=== PATIENT | female | born 1995 | race Caucasian/White ===

== ENCOUNTER 2017-09-09 14:49 | Emergency (ER) | END 2017-09-09 18:40 | disposition home or self-care (01) ==

== ENCOUNTER 2018-09-27 19:33 | Emergency (ER) | payer MEDICAID ==
[~2018-09-27] VITALS: Wt 65.0 kg
[~2018-09-27 19:33] MED LIST: LEVE750T70 PO; LORA1TAB PO
[2018-09-27] MEDS ORDERED: SOD CHLORIDE 0.9% 500 ML IV STA (20:44)
[2018-09-27] MEDS ORDERED: LEVETIRACETAM 500 MG (PMX) 100 ML IVPB ONE (21:00)
[2018-09-27 21:21] VITALS: BP 120/82; PULSE 100; RESP 19
--- NOTE | 2018-09-27 22:32 | ERD ---
ER Documentation Chief Complaint Chief Complaint bib ra cc: seizure x 5 min, -postictal, last seizure sat, taking keppra, HPI 23-year-old woman suffered a tonic-clonic seizure witnessed by her friend about an hour prior to arrival. Patient does have a history of seizures and uses 1500 mg levetiracetam twice daily, but her neurologist recently added zonisamide to better control her seizures because she does have infrequently despite Keppra therapy. She did fill her prescription but has not used zonisamide today because it is new. Patient had no loss of bowel or bladder control and a very short postictal episode, she feels fine at this time and is asymptomatic currently. ROS All systems reviewed and are negative except as per history of present illness. Medications Home Meds Active Scripts Lorazepam* (Lorazepam*) 1 Mg Tablet, 1 MG PO Q8, #10 TAB Prov:LEKKOS,APOSTOLOS A. DO 09/09/17 Levetiracetam* (Keppra*) 750 Mg Tablet, 750 MG PO BID, #60 TAB Prov:LEKKOS,APOSTOLOS A. DO 09/09/17 Allergies Allergies: Coded Allergies: Penicillins (Verified Allergy, Unknown, 09/09/17) PMhx/Soc Seizure disorder Medical and Surgical Hx: pt denies Surgical Hx Hx Neurological Disorder: Yes (seizure disorder ) Hx Alcohol Use: No Hx Substance Use: No Hx Tobacco Use: No Smoking Status: Never smoker FmHx Family History: No diabetes Physical Exam Vitals Vital Signs Date Temp Pulse Resp B/P (MAP) Pulse Ox O2 O2 Flow FiO2 Time Delivery Rate 09/27/18 98.1 100 19 120/82 100 Room Air 21:21 (95) 09/27/18 98.1 101 19 124/87 100 19:41 (99) 09/27/18 98.1 117 19 130/81 100 Room Air 19:41 (97) Physical Exam GENERAL: Well-developed, well-nourished, well-hydrated, in no apparent distress, looks nontoxic in appearance HEENT: Moist mucous membranes, pink conjunctiva, no cervical spine tenderness or step-off deformities, no goiter, no jaundice or icterus, extraocular movements intact without pain. No submandibular induration, and no pharyngeal erythema NEURO: Alert and oriented 3, cranial nerves II through XII intact bilaterally, pupils equal round reactive to light, no focal deficits or facial asymmetry, sensation intact distally Strength 5/5 in upper and lower extremities bilaterally CARDIAC: Regular rate and rhythm, no murmurs rubs or gallops LUNGS: Clear bilaterally no wheezing crackles or stridor ABDOMEN: Soft nontender, no guarding, no rigidity, no rebound, no psoas sign no obturator sign. Normoactive bowel sounds SKIN: Warm and dry to touch, no abrasions, contusions, or hematomas, no lac erations, no ecchymosis, no target lesions, and without ulcers EXTREMITIES: No clubbing cyanosis or edema, calves are bilaterally symmetrical, no Homans sign, no popliteal cord sign. Distal pulses equal and bilateral PSYCH: Normal affect without agitation or irritability Results 24 hrs Current Medications Medications Dose Sig/Lisa Start Time Status Last (Trade) Ordered Route PRN Stop Time Admin Dose Reason Admin 100 ml @ ONCE ONCE 09/27/18 DC 09/27/18 Levetiracetam 400 mls/hr IVPB 21:00 09/27/18 21:00 21:14 Sodium 500 ml @ Q1H STAT 09/27/18 DC 09/27/18 Chloride 500 mls/hr IV 20:44 09/27/18 21:06 21:22 Procedures/MDM IV line was established patient was placed on night monitor rhythm strip revealed a sinus rhythm at about 80 bpm with upright P and T waves. Patient was afebrile I did provide the patient with good sleep hygiene instructions and recommended better sleeping habits, and also administered 500 normal saline IV and Keppra 500 mg IV x1 (she has used her evening Keppra dose today) Differential diagnoses considered, included but not limited to acute coronary syndrome, pulmonary embolism, aortic dissection, abdominal aortic aneurysm, sepsis, stroke, meningitis, encephalitis, pneumonia, appendicitis, cholecystitis, bowel obstruction, pyelonephritis, nephrolithiasis, cystitis, as well as metabolic, hematologic, and electrolyte abnormalities. As well as abscess, cellulitis, fractures, and dislocations. Patient feels much better at this time, and vital signs are normal, symptoms have improved. I did give strict instructions to return to the ED if symptoms continue or worsen, patient will otherwise follow-up with primary care physician. Patient understood instructions and agreed to plan. Disclaimer: Inadvertent spelling and grammatical errors are likely due to EHR/dictation software use and do not reflect on the overall quality of patient care. Also, please note that the electronic time recorded on this note does not necessarily reflect the actual time of the patient encounter. Departure Diagnosis: Primary Impression: Seizure Condition: Good Patient Instructions: Seizure, Recurrent [Adult] GLORIA SQUIRES MD Sep 27, 2018 22:32
== END 2018-09-27 21:22 | disposition home or self-care (01) ==
LOC: E/R 19:33
DX: R56.9 Unspecified convulsions (principal)
CPT/HCPCS: 96374; J1953; J7040; Z7502